=== PATIENT | female | born 1980 | race Caucasian/White ===

== ENCOUNTER 2016-08-06 15:25 | Emergency (ER) | payer SELFPAY ==
[~2016-08-06] VITALS: Ht 154.9 cm; Wt 67.0 kg
[2016-08-06 15:34] VITALS: BP 139/94; PULSE 92; RESP 16; TEMP 98; O2SAT 100
[2016-08-06] MEDS ORDERED: BUPR1SUB SL (15:43)
--- NOTE | 2016-08-06 16:41 | PD ---
HPI Chief Complaint: Back/ Neck Pain or Injury Time Seen by Provider: 16:38 Travel History International Travel<30 days: No Contact w/Intl Traveler<30days: No Traveled to known affect area: No History of Present Illness HPI 36-year-old female presents to the emergency room for evaluation of neck pain after injuring her neck yesterday. Patient slipped on the concrete and almost fell backward. She was able to catch herself on the van but flung her neck back. She had no pain at the time of injury. She went home, went to bed, woke up without issue. While at work, she developed posterior neck pain especially while looking up at the screens above her head. She has not taken anything for pain. She came straight to the emergency room. Patient reports when she looks up at the ceiling she develops shooting pain down her right arm. She denies paresthesias. PFSH Past Medical History Medical History: Denies Significant Hx Diminished Hearing: No Immunizations Current: Yes Tetanus Vaccination: Unknown Influenza Vaccination: No ?: Not Past Surgical History Surgical History: No Previous Surgery Social History Alcohol Use: No Tobacco Use: Yes (6 cigs daily) Substance Use: No Allergies-Medications (Allergen,Severity, Reaction): Coded Allergies: No Known Allergies (Unverified , 08/06/16) Reported Meds & Prescriptions Reported Meds & Active Scripts Active Ibuprofen 600 Mg Tab 600 Mg PO Q8HR PRN Robaxin (Methocarbamol) 750 Mg Tab 750 Mg PO Q6HR Reported Zubsolv (Buprenorphine-Naloxone) 8.6-2.1 Mg Subl 1 Tab SL BID Review of Systems Except as stated in HPI: all other systems reviewed are Neg Physical Exam Narrative GENERAL: Well-nourished, well-developed female in no acute distress. Afebrile. Ambulatory. SKIN: Focused skin assessment warm/dry. No erythema or ecchymosis. HEAD: Normocephalic. EYES: No scleral icterus. No injection or drainage. NECK: Supple. No meningeal signs. Trachea midline. No JVD or lymphadenopathy. No tenderness to palpation of the cervical spine. Mild tenderness to palpation of bilateral paraspinous musculature at C7. Full range of motion of the neck. CARDIOVASCULAR: Regular rate and rhythm without murmurs, gallops, or rubs. RESPIRATORY: Breath sounds equal bilaterally. No accessory muscle use. BACK: Nontender without obvious deformity. No CVA tenderness. Data Data Last Documented VS Vital Signs Date Time Temp Pulse Resp B/P Pulse Ox O2 Delivery O2 Flow Rate FiO2 08/06/16 15:34 98.0 92 16 139/94 100 Orders Ketorolac Inj (Toradol Inj) (08/06/16 16:45) Orphenadrine Inj (Norflex Inj) (08/06/16 16:45) MDM Medical Decision Making Medical Screen Exam Complete: Yes Emergency Medical Condition: Yes Medical Record Reviewed: Yes Differential Diagnosis Strain versus fracture versus sprain Narrative Course 36-year-old female presents to the emergency room for evaluation of posterior neck pain after tripping yesterday. Patient jerked her neck while attempting to catch herself. She did not actually fall. Pain did not develop until she went to work this afternoon which involves looking up at the screen. Mild tenderness to palpation of bilateral paraspinous musculature at C7. Full range of motion. [place] CT rule excludes need for imaging at this time. This is cervical strain. Patient given Toradol and Norflex in the emergency room. She' ll be discharged with prescriptions for ibuprofen and Robaxin. Told to follow up with a primary care physician or return to the emergency room for worsening symptoms. She understands and agrees to this plan. Diagnosis Primary Impression: Cervical strain, acute Qualified Code: S16.1XXA - Cervical strain, acute, initial encounter Referrals: Primary Care Physician Patient Instructions: Cervical Neck Strain Exercises (GEN), Cervical Strain (ED ), General Instructions Additional Instructions: Rest and drink plenty of fluids. Take Robaxin as directed, as needed for pain. Take ibuprofen with food as directed, as needed for pain. Apply ice to the affected area for 20 minutes at a time, as needed for pain and swelling. Follow-up with a primary care physician. Return to the emergency room for worsening symptoms. Med/Other Pt SpecificInfo: Prescription(s) given Scripts Ibuprofen 600 Mg [id number] Mg PO Q8HR PRN (PAIN) #21 TAB Ref 0 Prov:Kel Morrissey MD 08/06/16 Methocarbamol (Robaxin)750 Mg [id number] Mg PO Q6HR #21 TAB Ref 0 Prov:Kel Morrissey MD 08/06/16 Disposition: 01 DISCHARGE HOME Condition: Stable Adrienne Vicente August 06, 2016 16:41
[2016-08-06] MEDS ORDERED: ROBA750T PO (16:42)
[2016-08-06] MEDS ORDERED: IBUP-232 PO (16:42)
[2016-08-06] MEDS ORDERED: KETOROLAC TROMETHAMINE 60 MG/2 ML (IM) VIAL IM ONE (16:45)
[2016-08-06] MEDS ORDERED: ORPHENADRINE INJ 60 MG/2 ML AMP IM ONE (16:45)
== END 2016-08-06 16:58 | disposition home or self-care (01) ==
LOC: PHEFT 15:25
DX: S16.1XXA Strain of muscle, fascia and tendon at neck level, initial encounter (principal); F17.210 Nicotine dependence, cigarettes, uncomplicated; W01.0XXA Fall on same level from slipping, tripping and stumbling without subsequent striking against object, initial encounter; Z79.899 Other long term (current) drug therapy
CPT/HCPCS: 96372; 99284; J1885; J2360